=== PATIENT | male | born 1955 | race Caucasian/White ===

== ENCOUNTER 2017-10-11 10:37 | Outpatient (CLI) | payer MEDICARE, BC | END 2017-10-11 10:38 | disposition home or self-care (01) | LOC: LAB 10:37 | PROVIDERS: ATTEND Family Medicine | DX: I82.409 Acute embolism and thrombosis of unspecified deep veins of unspecified lower extremity (principal) | CPT/HCPCS: 85610 ==

== ENCOUNTER 2017-10-26 10:35 | Outpatient (CLI) | payer MEDICARE, BC | END 2017-10-26 10:36 | disposition home or self-care (01) | LOC: LAB 10:35 | PROVIDERS: ATTEND Nurse Practitioner Family | DX: I82.409 Acute embolism and thrombosis of unspecified deep veins of unspecified lower extremity (principal) | CPT/HCPCS: 85610 ==

== ENCOUNTER 2017-11-30 09:16 | Outpatient (CLI) | payer MEDICARE, BC | END 2017-11-30 09:17 | disposition home or self-care (01) | LOC: LAB 09:16 | PROVIDERS: ATTEND Family Medicine | DX: I82.409 Acute embolism and thrombosis of unspecified deep veins of unspecified lower extremity (principal) | CPT/HCPCS: 85610 ==

== ENCOUNTER 2017-12-18 10:29 | Outpatient (CLI) | payer MEDICARE, BC | END 2017-12-18 10:30 | disposition home or self-care (01) | LOC: LAB 10:29 | PROVIDERS: ATTEND Family Medicine | DX: I82.409 Acute embolism and thrombosis of unspecified deep veins of unspecified lower extremity (principal) | CPT/HCPCS: 85610 ==

== ENCOUNTER 2018-01-07 08:36 | Outpatient (CLI) | payer MEDICARE, BC | END 2018-01-07 08:37 | disposition home or self-care (01) | LOC: LAB 08:36 | PROVIDERS: ATTEND Family Medicine | DX: I82.409 Acute embolism and thrombosis of unspecified deep veins of unspecified lower extremity (principal) | CPT/HCPCS: 85610 ==

== ENCOUNTER 2018-01-14 09:17 | Outpatient (CLI) | payer MEDICARE, BC | END 2018-01-14 09:18 | disposition home or self-care (01) | LOC: LAB 09:17 | PROVIDERS: ATTEND Family Medicine | DX: I82.409 Acute embolism and thrombosis of unspecified deep veins of unspecified lower extremity (principal) | CPT/HCPCS: 85610 ==

== ENCOUNTER 2018-01-22 14:57 | Outpatient (CLI) | payer MEDICARE, BC | END 2018-01-22 14:58 | disposition home or self-care (01) | LOC: LAB 14:57 | PROVIDERS: ATTEND Family Medicine | DX: I82.409 Acute embolism and thrombosis of unspecified deep veins of unspecified lower extremity (principal) | CPT/HCPCS: 85610 ==

== ENCOUNTER 2018-01-25 11:11 | Outpatient (CLI) | payer MEDICARE, BC | END 2018-01-25 11:12 | disposition home or self-care (01) | LOC: LAB 11:11 | PROVIDERS: ATTEND Family Medicine | DX: I82.409 Acute embolism and thrombosis of unspecified deep veins of unspecified lower extremity (principal) | CPT/HCPCS: 85610 ==

== ENCOUNTER 2018-01-30 09:33 | Outpatient (CLI) | payer MEDICARE, BC | END 2018-01-30 09:34 | disposition home or self-care (01) | LOC: LAB 09:33 | PROVIDERS: ATTEND Family Medicine | DX: I82.409 Acute embolism and thrombosis of unspecified deep veins of unspecified lower extremity (principal) | CPT/HCPCS: 85610 ==

== ENCOUNTER 2018-02-02 09:02 | Outpatient (CLI) | payer MEDICARE, BC | END 2018-02-02 09:03 | disposition home or self-care (01) | LOC: LAB 09:02 | PROVIDERS: ATTEND Family Medicine | DX: I82.409 Acute embolism and thrombosis of unspecified deep veins of unspecified lower extremity (principal) | CPT/HCPCS: 85610 ==

== ENCOUNTER 2018-02-02 13:20 | Outpatient (CLI) | payer MEDICARE, BC | END 2018-02-02 13:21 | disposition home or self-care (01) | LOC: RT 13:20 | PROVIDERS: ATTEND Internal Medicine Hematology & Oncology | DX: D89.810 Acute graft-versus-host disease (principal); R94.2 Abnormal results of pulmonary function studies | CPT/HCPCS: 94010; 94729 ==

== ENCOUNTER 2018-02-07 10:22 | Outpatient (CLI) | payer MEDICARE, BC | END 2018-02-07 10:23 | disposition home or self-care (01) | LOC: LAB 10:22 | PROVIDERS: ATTEND Family Medicine | DX: I82.409 Acute embolism and thrombosis of unspecified deep veins of unspecified lower extremity (principal) | CPT/HCPCS: 85610 ==

== ENCOUNTER 2018-08-28 15:11 | Outpatient (CLI) | payer MEDICARE, BC | END 2018-08-28 15:12 | disposition critical access hospital (66) | LOC: EMS 15:11 | PROVIDERS: ATTEND Surgery | DX: R00.2 Palpitations (principal) | CPT/HCPCS: A0425; A0427 ==

== ENCOUNTER 2018-08-28 15:19 | Emergency (ER) | payer MEDICARE, BC ==
[2018-08-28] MEDS ORDERED: diltiaZEM INJ 5 MG/ML VIAL ONE (15:33)
[2018-08-28] MEDS ORDERED: diltiaZEM INJ 5 MG/ML VIAL IVP STA (15:34)
[2018-08-28] MEDS ORDERED: PROCAINAMIDE 1,000 MG in SODIUM CHLORIDE 0.9% 240 ML IV STA (15:35)
--- NOTE | 2018-08-28 15:46 | ED Physician Documentation ---
History of Present Illness - Stated complaint Stated Complaint: RAPID HR - Chief complaint Chief Complaint: Cardiac - History obtained from History obtained from: Patient, EMS - History of Present Illness Timing: How many hours ago (3) Pain level max: 3 Pain level now: 3 - Additonal information Additional information: 63-year-old gentleman presents the emergency department stating that he feels his heart racing since about 1230 today. Feels chest tightness. Mild shortness of breath. Picked up by EMS, given adenosine x2, 6 and then 12 mg, no change. Does not have a history of atrial fibrillation. No cardiac history. 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 - Past Surgical History General: Colonoscopy, Other Ortho: Knee replacement HEENT: Cataracts - Present Medications Home Medications: Ambulatory Orders Medication Instructions Recorded Confirmed Calcium Carbonate/Vitamin D3 2 tab PO DAILY 10/02/17 04/30/18 [Calcium 250-Vit D3 125 Tablet] Cholecalciferol (Vitamin D3) 1 cap PO DAILY 10/02/17 04/30/18 [Vitamin D3] Multivitamin [Multivitamins] 1 tab PO DAILY 10/02/17 04/30/18 Valacyclovir HCl [Valacyclovir] 1 tab PO DAILY 10/02/17 04/30/18 Sirolimus 2 tab PO DAILY 12/18/17 04/30/18 Omeprazole 1 cap PO DAILY PRN 01/22/18 04/30/18 predniSONE [Prednisone] 30 mg PO DAILY 02/15/18 04/30/18 Rivaroxaban [Xarelto] 1 tab ORAL DAILY 03/05/18 04/30/18 Advair. 1 inh INH BID 06/11/18 Bactrim. tab ORAL DAILY 06/11/18 Cyclosporine [Restasis] 1 drops EACHEYE BID 06/11/18 06/11/18 - Allergies Allergies/Adverse Reactions: Allergies Allergy/AdvReac Type Severity Reaction Status Date / Time Penicillins Allergy Severe Respiratory Verified 03/05/18 12:56 - Social History Does the pt smoke?: No Smoking Status: Never smoker Does the pt drink ETOH?: Yes Does the pt have substance abuse?: Yes Substance Use and Type: Marijuana - Immunizations Immunizations are current?: No PD ED PE NORMAL - Vitals Vital signs reviewed: Yes - General General: Alert and oriented X 3, No acute distress, Well developed/nourished - HEENT HEENT: PERRL, Moist mucous membranes - Neck Neck: Supple, no meningeal sign - Cardiac Cardiac: Other (irregular, tachycardic) - Respiratory Respiratory: No respiratory distress, Clear bilaterally - Abdomen Abdomen: Soft, Non tender, Non distended - Back Back: No spinal TTP - Derm Derm: Warm and dry - Extremities Extremities: No edema, No calf tenderness / cord - Neuro Neuro: Alert and oriented X 3 - Psych Psych: Normal mood, Normal affect Results - Vitals Vitals: Vital Signs - 24 hr 08/28/18 08/28/18 08/28/18 15:20 15:33 15:51 Temperature 36.2 C L Heart Rate 150 H 165 H 150 H Respiratory 13 28 H 14 Rate Blood Pressure 160/108 H 135/84 H 130/107 H O2 Saturation 98 99 99 08/28/18 08/28/18 08/28/18 16:03 17:08 17:10 Temperature 98.0 C H Heart Rate 144 H 214 H 130 H Respiratory 20 16 15 Rate Blood Pressure 126/91 H 136/79 H 130/80 O2 Saturation 97 98 96 08/28/18 08/28/18 08/28/18 17:14 17:16 17:30 Temperature Heart Rate 120 H 120 H 96 Respiratory 18 15 16 Rate Blood Pressure 118/80 118/80 129/76 O2 Saturation 94 95 95 08/28/18 08/28/18 18:00 18:46 Temperature 36.3 C L Heart Rate 95 92 Respiratory 17 21 Rate Blood Pressure 128/81 H 124/81 H O2 Saturation 99 96 Oxygen O2 Source Room air - EKG (time done) 1525 Rate: Rate (enter#) (140) Rhythm: Atrial fibrillation (RVR) Ischemia: ST depression 1715 Rate: Rate (enter#) (124) Rhythm: Sinus tachycardia [place]: Normal Intervals: Normal [place] QRS: Normal Ischemia: Non specific changes - Labs Labs: Laboratory Tests 08/28/18 08/28/18 08/28/18 15:43 15:43 15:43 WBC 10.7 RBC 4.37 L Hgb 14.5 Hct 43.0 MCV 98.3 H MCH 33.1 H MCHC 33.7 RDW 15.0 Plt Count 237 MPV 8.2 Neut # (Auto) 8.6 H Lymph # (Auto) 1.4 L [place] # (Auto) 0.6 Eos # (Auto) 0.0 Baso # (Auto) 0.1 Absolute Nucleated RBC 0.01 Nucleated RBC % 0.1 Sodium 137 Potassium 3.4 L Chloride 100 L Carbon Dioxide 23 Anion Gap 14.0 H BUN 16 Creatinine 1.0 Estimated GFR (MDRD) 75 L Glucose 139 H Calcium 9.3 Total Bilirubin 0.8 AST 24 ALT 19 Alkaline Phosphatase 50 Troponin I < 0.04 Total Protein 6.4 L Albumin 3.6 Globulin 2.8 Albumin/Globulin Ratio 1.3 Lipase 25 - Rads (name of study) cxr Radiology: Prelim report reviewed, EMP read contemporaneously, See rad report (Mild enlargement of the cardiac silhouette without CHF/fluid overload. 2. Probable mild right basilar atelectasis. Otherwise no acute cardiopulmonary a bnormality. ) Procedures - Procedural sedation Sedation prep: Informed consent, Time out completed, Last meal (5 hrs), PE performed, AHA 3 - severe disease, IV O2 monitor, ET CO2 monitor, RT present Sedation medications: propofol, given by MD Patient status during sedation: Drowsy, Recovered uneventfully Sedation recovery: Recovered uneventfully, Back to baseline - Cardioversion 1 Time of attempt: 17:10 Indication: Tachyarrhythmia, Chest pain Risks, benefits, alternatives explained to: Pt Prep: IV, O2, color television console monitor, Pulse ox (EtCO2) Meds: Propofol (100mg) CS via: Pads, Anterolateral Sync: Biphasic, 150j Post cardioversion rhythm: Other (sinus tach) Complications: Other (none) Performed by: ED PD MEDICAL DECISION MAKING - ED course Complexity details: reviewed results, re-evaluated patient, considered differential, d/w patient, d/w family, d/w virtualization consultant ED course: 63-year-old male with new onset atrial fibrillation with rapid ventricular response. Did decrease his rate with Cardizem, but did not convert. He then attempted procainamide, 1 g over an hour, no conversion. He then elected to have electrical cardioversion performed rather than a diltiazem drip. He converted with electricity. He is chronically anticoagulated. Concern for possible cardiomyopathy or worsening of his pcpog-veaind-toeg disease. Discussed the case with Dr. Krishnan, hospitalist here who recommends transfer for higher level of care. At 1800, I discussed the case with Alfredo SAN, [facility] who recommends transfer to the [facility] bone marrow transplant service. His pager number is [phone] - Call placed to BMT. 1900 - Patient signed out to Dr. Mariano, awaiting a callback from the [facility]. Departure - Departure Disposition: 02 Transfer Acute Care Hosp Clinical Impression: New onset a-fib Condition: Stable
[2018-08-28 15:47] LABS: BASOPHILS # (AUTO) 0.1 10^3/uL (0.0-0.1); BASOPHILS % (AUTO) 0.5 %; EOSINOPHILS % (AUTO) 0.4 %; HGB - HEMOGLOBIN 14.5 g/dL (14.0-18.0); LYMPHOCYTES # (AUTO) 1.4 10^3/uL (1.5-3.5); MEAN CORPUSCULAR HEMOGLOBIN 33.1 pg (27.0-31.0); MEAN CORPUSCULAR HGB CONC 33.7 g/dL (32.0-36.0); MEAN CORPUSCULAR VOLUME 98.3 fL (80.0-94.0); MEAN PLATELET VOLUME 8.2 fL (7.4-11.4); MONOCYTES # (AUTO) 0.6 10^3/uL (0.0-1.0); MONOCYTES % (AUTO) 5.5 %; NEUTROPHILS # (AUTO) 8.6 10^3/uL (1.5-6.6); NEUTROPHILS % (AUTO) 80.6 %; PLT - PLATELET COUNT 237 10^3/uL (130-450); RED BLOOD COUNT 4.37 10^6/uL (4.70-6.10); WHITE BLOOD COUNT 10.7 x10^3/uL (4.8-10.8)
[2018-08-28 16:05] LABS: ALBUMIN 3.6 g/dL (3.2-5.5); ALBUMIN/GLOBULIN RATIO 1.3 (1.0-2.2); BILIRUBIN,TOTAL 0.8 mg/dL (0.2-1.0); CALCIUM 9.3 mg/dL (8.5-10.3); TOTAL PROTEIN 6.4 g/dL (6.7-8.2)
--- NOTE | 2018-08-28 16:18 | XRAY Report ---
Reason: Chest Pain Procedure Date: 08/28/2018 Accession Number: [id number] / [id number] Procedure: XR - Chest 1 View X-Ray CPT Code: 37916 FULL RESULT: EXAM: CHEST RADIOGRAPHY EXAM DATE: 08/28/2018 03:58 PM. CLINICAL HISTORY: Chest pain. COMPARISON: None. TECHNIQUE: 1 view. FINDINGS: Lungs/Pleura: Mild hazy right basilar opacity. No other focal airspace opacity. No pleural effusion or pneumothorax. Mediastinum: Mild prominence of the cardiomediastinal contour. Prominent pericardial fat present along the left heart border. Pulmonary vasculature is within normal limits. Other: None. IMPRESSION: 1. Mild enlargement of the cardiac silhouette without CHF/fluid overload. 2. Probable mild right basilar atelectasis. Otherwise no acute cardiopulmonary abnormality. RADIA
[2018-08-28] MEDS ORDERED: PROPOFOL 200 MG/20 ML VIAL IVP STA (17:01)
--- NOTE | 2018-08-28 21:20 | ED Physician Documentation ---
ED Addendum - Addendum Addendum: 08/28/18 21:19 This is a 63-year-old gentleman with new onset atrial fibrillation that was converted by Dr. Marvni. He was signed out to me by Dr. Marvin at shift change pending consultation with [facility] for likely transfer. I was eventually called back by Dr. Grey Pickett, Who reviewed his chart and new onset atrial fibrillation was completely unrelated to his history of ieeit-ksders-ynkv disease and bone marrow transplant. He felt that there was no indication for him to be transferred to the [facility] or have other workup that would be any different than that of a patient without a history of stem cell transplant. 08/28/18 22:03 I did a second troponin which was still negative and undetectable and also added on a TSH which was negative. Patient is comfortable with discharge and will call his physician tomorrow for further workup and return if worse.
[2018-08-28 22:08] VITALS: BP 132/80
== END 2018-08-28 22:25 | disposition home or self-care (01) ==
LOC: EDUNIT# → ED 15:19
DX: I48.91 Unspecified atrial fibrillation (principal); D89.813 Graft-versus-host disease, unspecified; Z85.6 Personal history of leukemia; Z94.84 Stem cells transplant status; Z86.718 Personal history of other venous thrombosis and embolism; Z79.01 Long term (current) use of anticoagulants; Z96.659 Presence of unspecified artificial knee joint
CPT/HCPCS: 36415; 71045; 83690; 84484; 92960; 93005; 94770; 96365; 96375; 99152; 99284; 99285; J2690; 80053; 84443; 85025

== ENCOUNTER 2018-09-01 12:11 | Outpatient (CLI) | payer MEDICARE, BC | END 2018-09-01 12:12 | disposition home or self-care (01) | LOC: DI 12:11 | PROVIDERS: ATTEND Internal Medicine | DX: I48.1 Persistent atrial fibrillation (principal); I08.0 Rheumatic disorders of both mitral and aortic valves; I77.810 Thoracic aortic ectasia | CPT/HCPCS: 93306 ==

== ENCOUNTER 2019-05-31 17:30 | Emergency (ER) | payer MEDICARE, BC ==
[2019-05-31 17:36] VITALS: BP 134/80
[2019-05-31] MEDS ORDERED: BUFFERED LIDOCAINE 10 ML SYRINGE SUBQ STA (17:53)
--- NOTE | 2019-05-31 17:54 | ED Physician Documentation ---
PD HPI LOWER EXT INJURY - Stated complaint Stated Complaint: RT LEG LAC - Chief complaint Chief Complaint: Laceration - History obtained from History obtained from: Patient (63-year-old gentleman who is 5 years out from a stem cell transplant for AML with ndced-epotgr-ikjy disease affecting his skin. Tetanus is unknown. He tore the skin of the right calf just this evening on an exposed bolt in his garage that he brushed against.) Review of Systems Constitutional: reports: Reviewed and negative Nose: reports: Reviewed and negative Throat: reports: Reviewed and negative Cardiac: reports: Reviewed and negative PD PAST MEDICAL HISTORY - Past Medical History Cardiovascular: Deep vein thrombosis Respiratory: None Endocrine/Autoimmune: None GI: Colon polyps : None HEENT: None Psych: None Musculoskeletal: Osteoporosis Derm: None - Past Surgical History General: Colonoscopy, Other Ortho: Knee replacement HEENT: Cataracts - Present Medications Home Medications: Ambulatory Orders Medication Instructions Recorded Confirmed Calcium Carbonate/Vitamin D3 2 tab PO DAILY 10/02/17 02/04/19 [Calcium 250-Vit D3 125 Tablet] Cholecalciferol (Vitamin D3) 1 cap PO DAILY 10/02/17 02/04/19 [Vitamin D3] Multivitamin [Multivitamins] 1 tab PO DAILY 10/02/17 02/04/19 Valacyclovir HCl [Valacyclovir] 1 tab PO DAILY 10/02/17 02/04/19 Sirolimus 2 tab PO DAILY 12/18/17 02/04/19 Omeprazole 1 cap PO DAILY PRN 01/22/18 02/04/19 predniSONE [Prednisone] 20 mg PO DAILY 02/15/18 02/04/19 Rivaroxaban [Xarelto] 1 tab ORAL DAILY 03/05/18 02/04/19 Cyclosporine [Restasis] 1 drops EACHEYE BID 06/11/18 02/04/19 Flaxseed Oil 1,000 mg PO BID 02/04/19 02/04/19 Fluticasone/Salmeterol [Advair 1 puffs PO BID 02/04/19 02/04/19 100-50 Diskus] Metoprolol Succinate [Kapspargo 50 mg PO BID 02/04/19 02/04/19 Sprinkle] Sulfamethox/Trimeth 800/160 1 tab PO DAILY 02/04/19 02/04/19 [Bactrim Ds] - Allergies Allergies/Adverse Reactions: Allergies Allergy/AdvReac Type Severity Reaction Status Date / Time Penicillins Allergy Severe Respiratory Verified 05/31/19 17:33 - Social History Does the pt smoke?: No Smoking Status: Never smoker Does the pt drink ETOH?: Yes Does the pt have substance abuse?: Yes - Immunizations Immunizations are current?: No PD ED PE NORMAL - Vitals Vital signs reviewed: Yes - General General: Alert and oriented X 3, No acute distress - Extremities Extremities: Other (6 cm curved laceration in the subcutaneous fat on the anterolateral mid right [place]) - Neuro Neuro: Alert and oriented X 3, Normal speech Results - Vitals Vitals: Vital Signs - 24 hr 05/31/19 17:33 Temperature 36.6 C Heart Rate 90 Respiratory 15 Rate Blood Pressure 134/80 H O2 Saturation 99 Oxygen O2 Source Room air Procedures - Laceration (location) R leg Length in cm: 8 Wound type: Curved, Superficial, Into subcut fat Skin layer closure: Other (Initially tried to suture it with horizontal mattress sutures but they would just tear right through so after irrigation it was closed with Steri-Strips, benzoin, and Dermabond.) Complexity: Simple PD MEDICAL DECISION MAKING - ED course ED course: Recommended tetanus updating, he was wary given his history, I will call the [facility] and double check that it is safe. [facility] did not call us back in a timely manner. Review of the up-to-date online topic "Immunizations in hematopoietic cell transplant candidates and recipients" Confirms that since Tdap is not a live vaccine the usual vaccination series should be continued. Departure - Departure Disposition: 01 Home, Self Care Clinical Impression: Laceration Condition: Good Record reviewed to determine appropriate education?: Yes Instructions: ED Laceration Ext Sutr Stap Tape
[2019-05-31] MEDS ORDERED: TETANUS/DIPHTHERIA/PERTUSSIS 0.5 ML SYRINGE IM ONE (18:22)
== END 2019-05-31 18:29 | disposition home or self-care (01) ==
LOC: ED 17:30
DX: S81.811A Laceration without foreign body, right lower leg, initial encounter (principal); W22.09XA Striking against other stationary object, initial encounter; W45.8XXA Other foreign body or object entering through skin, initial encounter; Y93.01 Activity, walking, marching and hiking; Y92.008 Other place in unspecified non-institutional (private) residence as the place of occurrence of the external cause; Z23 Encounter for immunization; C92.00 Acute myeloblastic leukemia, not having achieved remission; Z94.84 Stem cells transplant status; Z86.718 Personal history of other venous thrombosis and embolism; Z79.01 Long term (current) use of anticoagulants
CPT/HCPCS: 12004; 90471

== ENCOUNTER 2021-02-28 16:18 | Outpatient (CLI) | payer MEDICARE, BC | END 2021-02-28 16:19 | disposition home or self-care (01) | LOC: COV 16:18 | DX: Z01.812 Encounter for preprocedural laboratory examination (principal); T86.5 Complications of stem cell transplant; D89.811 Chronic graft-versus-host disease; Z20.822 Contact with and (suspected) exposure to COVID-19 ==

== ENCOUNTER 2021-03-11 16:27 | Outpatient (CLI) | payer MEDICARE, BC | END 2021-03-11 16:28 | disposition home or self-care (01) | LOC: COV 16:27 | PROVIDERS: ATTEND Family Medicine | DX: R05 Cough (principal); R06.02 Shortness of breath; M79.10 Myalgia, unspecified site; R53.83 Other fatigue; R07.0 Pain in throat; R19.7 Diarrhea, unspecified; R09.81 Nasal congestion; J34.89 Other specified disorders of nose and nasal sinuses; Z20.822 Contact with and (suspected) exposure to COVID-19 ==

== ENCOUNTER 2022-12-26 14:12 | Emergency (ER) | payer MEDICARE, BC ==
--- NOTE | 2022-12-26 14:16 | ED Physician Documentation ---
PD HPI CHEST PAIN - Stated complaint Stated Complaint: CHEST PX - History obtained from History obtained from: Patient - History of Present Illness Timing - onset: How many days ago (2) Timing - onset during: Rest, Light activity. No: Eating Timing - duration: Days (2) Timing - details: Gradual onset, Waxing and waning (initially comign and going withut obvious pattern to eating, position, breathing, activity. Has become more consistent the past day. Still no pattern of inciting/alleviating factors.) Quality: Pressure, Tightness, Aching Location: Substernal, Left chest Radiation: Jaw, Back Improved by: No: Rest Worsened by: No: Inspiration, Eating, Movement, Palpation Associated symptoms: Palpitations (has history of atrial fib in the past but states the feeling of that is different than current symptoms.). No: Shortness of air, Diaphoresis, Cough Similar symptoms before: Has not had sx before Recently seen: Not recently seen Review of Systems Constitutional: denies: Fever, Chills Nose: denies: Rhinorrhea / runny nose, Congestion Throat: denies: Sore throat Cardiac: reports: Chest pain / pressure. denies: Palpitations, Pedal edema, Calf pain Respiratory: denies: Cough GI: reports: Nausea. denies: Abdominal Pain, Vomiting, Diarrhea PD PAST MEDICAL HISTORY - Past Medical History Cardiovascular: High cholesterol, Deep vein thrombosis, Atrial fibrillation Respiratory: None Endocrine/Autoimmune: None GI: Colon polyps : None HEENT: None Psych: None Musculoskeletal: Osteoporosis Derm: None - Past Surgical History Past Surgical History: Yes General: Colonoscopy, Other Ortho: Knee replacement HEENT: Cataracts - Present Medications Home Medications: Ambulatory Orders Medication Instructions Recorded Confirmed Calcium Carbonate/Vitamin D3 1 tab PO DAILY 10/02/17 03/28/22 [Calcium 250-Vit D3 125 Tablet] Cholecalciferol (Vitamin D3) 1 cap PO DAILY 10/02/17 03/28/22 [Vitamin D3] Multivitamin [Multivitamins] 1 tab PO DAILY 10/02/17 03/28/22 Rivaroxaban [Xarelto] 1 tab ORAL DAILY 03/05/18 03/28/22 Metoprolol Succinate [Kapspargo 75 mg PO UD 02/04/19 03/28/22 Sprinkle] Ruxolitinib Phosphate [Jakafi] 10 mg PO BID 03/28/22 03/28/22 Losartan [Cozaar] 25 mg PO DAILY 09/12/22 09/12/22 Albuterol Sulf [Ventolin Hfa 1 - 2 puffs INH Q4HR PRN #1 each 12/26/22 Inhaler] dexAMETHasone [Decadron] 4 mg PO DAILY #5 tablet 12/26/22 - Allergies Allergies/Adverse Reactions: Allergies Allergy/AdvReac Type Severity Reaction Status Date / Time Penicillins Allergy Severe Respiratory Verified 12/26/22 14:23 - Social History Does the pt smoke?: No Smoking Status: Never smoker Does the pt drink ETOH?: Yes Does the pt have substance abuse?: Yes - Immunizations Immunizations are current?: No PD ED PE NORMAL - Vitals Vital signs reviewed: Yes - General General: Alert and oriented X 3, No acute distress, Well developed/nourished - Neck Neck: Supple, no meningeal sign, No adenopathy - Cardiac Cardiac: RRR, No murmur - Respiratory Respiratory: No respiratory distress, Clear bilaterally, Other (no chestwall tenderness. ) - Abdomen Abdomen: Soft, Non tender - Derm Derm: Normal color, Warm and dry - Extremities Extremities: Normal ROM s pain, No edema, No calf tenderness / cord Results - Vitals Vitals: Vital Signs - 24 hr 12/26/22 12/26/22 12/26/22 14:18 14:28 14:37 Temperature 36.8 C Heart Rate 72 68 Respiratory 11 L 16 16 Rate Blood Pressure 145/85 H O2 Saturation 100 100 12/26/22 12/26/22 15:02 15:29 Temperature Heart Rate 61 Respiratory 16 17 Rate Blood Pressure 141/79 H O2 Saturation 100 Oxygen O2 Source Room air - EKG (time done) 14:15 EKG releavant findings:: EKG personally interpreted by author of this note. Relevant findings are: Rate: Rate (enter#) (64) Rhythm: NSR [place]: Normal Intervals: Normal [place] QRS: Normal Ischemia: Normal ST segments. No: ST elevation c/w ischemia, ST depression - Labs Labs: Laboratory Tests 12/26/22 12/26/22 12/26/22 14:50 14:50 14:50 WBC 6.9 RBC 3.45 L Hgb 12.3 L Hct 35.2 L MCV 102.0 H MCH 35.7 H MCHC 34.9 RDW 14.0 Plt Count 280 MPV 9.7 Neut # (Auto) 5.2 Lymph # (Auto) 1.1 L [place] # (Auto) 0.6 Eos # (Auto) 0.0 Baso # (Auto) 0.0 Absolute Nucleated RBC 0.00 Nucleated RBC % 0.0 Sodium 135 Potassium 3.8 Chloride 105 Carbon Dioxide 21 Anion Gap 9.0 BUN 13 Creatinine 1.0 Estimated GFR (MDRD) 74 L Glucose 128 H Calcium 9.1 Magnesium 1.9 Total Bilirubin 0.9 AST 26 ALT 27 Alkaline Phosphatase 29 L Total Creatine Kinase 109 Troponin I High Sens 3.9 B-Natriuretic Peptide Total Protein 6.5 L Albumin 4.0 Globulin 2.5 Albumin/Globulin Ratio 1.6 Lipase 34 12/26/22 14:50 WBC RBC Hgb Hct MCV MCH MCHC RDW Plt Count MPV Neut # (Auto) Lymph # (Auto) [place] # (Auto) Eos # (Auto) Baso # (Auto) Absolute Nucleated RBC Nucleated RBC % Sodium Potassium Chloride Carbon Dioxide Anion Gap BUN Creatinine Estimated GFR (MDRD) Glucose Calcium Magnesium Total Bilirubin AST ALT Alkaline Phosphatase Total Creatine Kinase Troponin I High Sens B-Natriuretic Peptide 346 H Total Protein Albumin Globulin Albumin/Globulin Ratio Lipase - Rads (name of study) chest xray Relevant Findings:: Prelim report reviewed, EMP independent interpretation of test (no acute process), See rad report PD Medical Decision Making - ED course Complexity details: considered differential, d/w patient Reviewed Lab Results: has had 2 days of chest pain, not exertional pattern. Has normal Trop and ECG. I would think heart pain, michael if unstable angina (continual even with rest) would have some bump in troponin. Consider muscular. Consider inflammatory, such as pericarditis (normal ECG but does not exclude it). Normal trop would preclude myocarditis though. CXR clear so no signs of effusion, PTX, infiltrate s. He is not tender upper abd and LFTs/lipase nromal. Departure - Departure Disposition: 01 Home, Self Care Clinical Impression: Chest discomfort Condition: Stable Record reviewed to determine appropriate education?: Yes Prescriptions: Albuterol Sulf [Ventolin Hfa Inhaler] 1 - 2 puffs INH Q4HR PRN #1 each PRN Reason: Shortness Of Air/Wheezing dexAMETHasone [Decadron] 4 mg PO DAILY #5 tablet Comments: Your EKG chest x-ray and troponin test are normal. No signs of acute heart injury/heart attack nor any signs of pneumonia or fluid in the lungs. Your heart rhythm is normal here. It is possible it may be intermittently abnormal with your waves of symptoms. You are slightly anemic with a hemoglobin 12.3 which is in the range of your normal readings that we have here. Basic chemistry panel and electrolytes are good. At this point is unclear the cause of your symptoms. It does not appear to be a more significant process or problems such as heart attack or rhythm. Considerations could be some bronchial or respiratory symptoms given some shortness of breath and discomfort in the central chest. If you were to trial medication to see if it helps, I would consider an albuterol inhaler 2 puffs 3-4 times daily for the next several days and also anti-inflammatory. Given that you are on a blood thinner we would opt for a mild steroid type anti-inflammatory rather than an NSAID. I wrote prescriptions for albuterol inhaler and Decadron steroid for short course if you wanted to see if those helped your symptoms overall. Otherwise follow-up with your primary care and contact your cardiology office to see if they want to do any other testing or evaluation. Discharge Date/Time: 12/26/22 16:06
[2022-12-26 14:57] LABS: BASOPHILS % (AUTO) 0.3 %; EOSINOPHILS % (AUTO) 0.1 %; HCT - HEMATOCRIT 35.2 % (42.0-52.0); HGB - HEMOGLOBIN 12.3 g/dL (14.0-18.0); LYMPHOCYTES # (AUTO) 1.1 10^3/uL (1.5-3.5); LYMPHOCYTES % (AUTO) 15.8 %; MEAN CORPUSCULAR HEMOGLOBIN 35.7 pg (27.0-31.0); MEAN CORPUSCULAR HGB CONC 34.9 g/dL (32.0-36.0); MEAN PLATELET VOLUME 9.7 fL (7.4-11.4); MONOCYTES # (AUTO) 0.6 10^3/uL (0.0-1.0); MONOCYTES % (AUTO) 8.3 %; NEUTROPHILS # (AUTO) 5.2 10^3/uL (1.5-6.6); NEUTROPHILS % (AUTO) 75.2 %; PLT - PLATELET COUNT 280 10^3/uL (130-450); RED BLOOD COUNT 3.45 10^6/uL (4.70-6.10); WHITE BLOOD COUNT 6.9 x10^3/uL (4.8-10.8)
[2022-12-26 15:03] VITALS: BP 141/79
--- NOTE | 2022-12-26 15:11 | XRAY Report ---
PROCEDURE: Chest 1 View X-Ray INDICATIONS: Chest Pain TECHNIQUE: One view of the chest was acquired. COMPARISON: None. FINDINGS: Surgical changes and devices: None. Lungs and pleura: No pleural effusions or pneumothorax. Lungs are clear. Mediastinum: Mediastinal contours appear normal. Heart size is normal. Bones and chest wall: No suspicious bony lesions. Overlying soft tissues appear unremarkable. IMPRESSION: No acute cardiopulmonary process. Reviewed by: Trey Flores MD on 12/26/2022 3:09 PM PDT Approved by: Trey Flores MD on 12/26/2022 3:09 PM PDT Station ID: [id number]
[2022-12-26 15:17] LABS: ALBUMIN/GLOBULIN RATIO 1.6 (1.0-2.2); BILIRUBIN,TOTAL 0.9 mg/dL (0.2-1.0); CALCIUM 9.1 mg/dL (8.5-10.3); MAGNESIUM 1.9 mg/dL (1.7-2.8); POTASSIUM 3.8 mmol/L (3.5-5.0); TOTAL PROTEIN 6.5 g/dL (6.7-8.2)
== END 2022-12-26 16:06 | disposition home or self-care (01) ==
LOC: ED 14:12
DX: R07.89 Other chest pain (principal); E78.00 Pure hypercholesterolemia, unspecified; I48.91 Unspecified atrial fibrillation; Z79.899 Other long term (current) drug therapy; Z79.01 Long term (current) use of anticoagulants
CPT/HCPCS: 36415; 80053; 82550; 83690; 83735; 83880; 84484; 85025; 93005; 99284